=== PATIENT | male | born 1995 | race Two or more races ===

== ENCOUNTER 2022-01-12 10:10 | Emergency (ER) | payer BC ==
[2022-01-12] MEDS ORDERED: Ondansetron 4 MG Tab.DIS PO ONE (10:18)
[2022-01-12] MEDS ORDERED: Ketorolac 30 MG/ML SDV IM ONE (11:37)
[2022-01-12 11:39] LABS: BLOOD UREA NITROGEN,BUN 14 mg/dL (7.0-18.0); CARBON DIOXIDE,CO2 27.8 mmol/L (21.0-32.0); CHLORIDE,CL 100 mmol/L (98-107); GLUCOSE RANDOM 96 mg/dL (74-106); POTASSIUM,K 3.7 mmol/L (3.5-5.1); SODIUM,NA 138 mmol/L (136-148)
== END 2022-01-12 12:08 | disposition home or self-care (01) ==
LOC: MW.ED 10:10
DX: R07.89 Other chest pain (principal)
CPT/HCPCS: 36415; 71045; 80053; 84484; 85025; 93005; 96372; 99285; A9270; J1885